=== PATIENT | male | born 1970 | race Caucasian/White ===

== ENCOUNTER 2023-03-02 08:36 | Outpatient (CLI) | payer BC, SELFPAY ==
[2023-03-02 10:54] VITALS: BP 108/72; PULSE 113; RESP 16
--- NOTE | 2023-03-02 11:04 | W.PM.STED ---
Stress Test Note Date Date of test: 03/02/23 Providers Referring provider: STEFANO batres Primary care provider: Sekou Skaggs Stress test physician: Barber Gray Stress Test Note Stress test ordered: Stress Myoview Indication for test: CAD Results discussion: This pleasant 52-year-old gentleman presents for the above test, he has a past history of stents placed in 2022, cardiac stress test medical history form is reviewed entirely. Patient understands the risks benefits and side effects like to proceed. Pretest EKG shows normal sinus rhythm, ventricular rate was 73, rhythm is sinus, blood pressure 102/78. No acute ST wave changes are noted. Following standard Magdi protocol patient is exercised for a total time of 11 minutes, achieved a metabolic equivalent of 12.1 Mets, with a maximum heart rate of 159, this is 110% of the target. Maximum blood pressure was 148/76. Test is terminated because of fulfillment of protocol, he did not develop any chest pain, there is some mild fatigue and leg discomfort. No appreciable ST wave changes are notable. There is no dysrhythmias, any recovered normally. Conditioning is felt to be good. Impression: Negative electrographic portion of exercise Myoview Follow up suggested: Await nuclear images which will be jointly read by Cardiology and nuclear Medicine, clinical correlation with these will be needed. Patient left this testing facility in good condition.
== END 2023-03-02 10:55 | disposition home or self-care (01) ==
LOC: STRESS 08:45
PROVIDERS: Visit Provider Family Medicine
DX: I25.10 Atherosclerotic heart disease of native coronary artery without angina pectoris (principal)
CPT/HCPCS: 78452; 93016; 93017; A9500